=== PATIENT | female | born 1990 | race Caucasian/White ===

== ENCOUNTER 2022-05-03 11:52 | Emergency (ER) | payer MEDICAID, OTHER ==
[~2022-05-03] VITALS: Ht 170.2 cm; Wt 76.0 kg
[2022-05-03] MEDS ORDERED: IBUPROFEN 600MG TABLET PO ONE (13:30)
[2022-05-03 13:38] VITALS: BP 116/78
[2022-05-03] MEDS ORDERED: NAPR-681 MT (17:20)
== END 2022-05-03 17:50 | disposition home or self-care (01) ==
LOC: ER 11:55
DX: S82.52XA Displaced fracture of medial malleolus of left tibia, initial encounter for closed fracture (principal); X58.XXXA Exposure to other specified factors, initial encounter; Y93.89 Activity, other specified; Y92.89 Other specified places as the place of occurrence of the external cause; Y99.8 Other external cause status
CPT/HCPCS: 29515; 73610; 99283